=== PATIENT | male | born 1995 | race Caucasian/White ===

== ENCOUNTER → 2017-03-30 | Outpatient (CLI) | payer BC ==
--- NOTE | 2017-03-31 08:39 | XR ---
"EXAMINATION TYPE: XR wrist complete RT DATE OF EXAM: 03/30/2017 COMPARISON: 03/27/2016 HISTORY: Pain TECHNIQUE 3 views submitted. FINDINGS: There is a age-indeterminate fracture through the waist of the scaphoid. Remaining osseous structures intact. Joint spaces preserved. IMPRESSION: 1. Age-indeterminate fracture through the waist of the scaphoid. A Yellow message has been communicated to Zainab Anton via the [employer] | Critical Re sult system on 03/31/2017 8:36 AM, Message ID [id number]."
== END | disposition home or self-care (01) ==
LOC: RADXRYALE 15:49
PROVIDERS: ATTEND Physician Assistant Medical
DX: S62.001A Unspecified fracture of navicular [scaphoid] bone of right wrist, initial encounter for closed fracture (principal)

== ENCOUNTER → 2017-05-15 | Outpatient (CLI) | payer BC ==
--- NOTE | 2017-05-15 11:22 | MR ---
MR right wrist HISTORY: Pain and fracture, M 25.531 Multiplanar multisequence imaging through the right wrist correlated to plain film 03/30/2017 The scaphoid waist fracture shows minimal displacement. There is bone marrow edema involving the dist al metaphyseal radius, there is likely associated microtrabecular fractures present within the distal radius and carpal bones. Bone marrow edema is present within the triquetrum, distal pole of the scap hoid and lesser extent lunate bone as well as proximal capitate, trapezoid. There is a joint effusion present. Right neural fibrocartilage, scapholunate, lunotriquetral ligaments felt to be intact. Some eburnation present at the distal aspect of the lunate is noted as on plain film where there is scler osis present. IMPRESSION: Scaphoid fracture is minimally displaced. There is diffuse marrow edema, microtrabecular fractures are suspected.
== END | disposition home or self-care (01) ==
LOC: RADMRIMAIN 09:58
PROVIDERS: ATTEND Orthopaedic Surgery Hand Surgery
DX: S62.021A Displaced fracture of middle third of navicular [scaphoid] bone of right wrist, initial encounter for closed fracture (principal)

== ENCOUNTER 2022-09-23 23:34 | Emergency (ER) | payer BC ==
[2022-09-24 00:17] VITALS: RESP 20; TEMP 98.2
--- NOTE | 2022-09-24 01:26 | XR ---
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 No acute fracture seen. The distal radius and ulna appear intact. Metacarpals are intact. 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 No acute fra ctures seen.
--- NOTE | 2022-09-24 01:27 | XR ---
EXAMINATION TYPE: XR hand complete RT DATE OF EXAM: 09/24/2022 COMPARISON: NONE HISTORY: Fall. Pain TECHNIQUE: 3 views FINDINGS: 3 views IMPRESSION: Metacarpals are intact. Fingers are intact. There are no erosions. 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 IMPRESSION: No acute abnormality of the right hand.
[2022-09-24] MEDS ORDERED: traMADol 50 MG TAB PO STA (01:46)
--- NOTE | 2022-09-24 02:03 | ED ---
Upper Extremity HPI - General Chief Complaint: Extremity Injury, Upper Stated Complaint: rt arm injury Time Seen by Provider: 09/24/22 01:14 Source: patient, RN notes reviewed Mode of arrival: ambulatory Limitations: no limitations - History of Present Illness Initial Comments: This is a 27-year-old male who presents to the emergency department with pain and swelling to the right hand and wrist. States that he was walking upstairs when he tripped and fell, landing with his right wrist bent back. Denies any other injuries. He is having difficulty moving his wrist and hand due to the pain. He feels like when the injury occurred, he heard a popping sensation. He does have a prior injury to this area, and broke it approximately 3 years ago. Denies any fevers, chills, sore throat, cough, dyspnea, chest pain, palpitations, abdominal pain, nausea, vomiting, diarrhea, back pain, or headaches. MD Complaint: Injury to:: right, wrist, hand Associated Symptoms: heard/felt popping sensat - Related Data Home Medications Medication Instructions Recorded Confirmed Amoxicillin 500 mg PO Q12HR 06/03/16 06/03/16 HYDROcodone/APAP 5-325MG [[place] 1 tab PO Q4HR PRN 06/03/16 06/03/16 5-325] Previous Rx's Medication Instructions Recorded traMADol HCl [Ultram] 50 mg PO Q6HR PRN 3 Days #12 tab 09/24/22 Allergies Allergy/AdvReac Type Severity Reaction Status Date / Time codeine Allergy Rash/Hives Verified 09/24/22 00:17 Review of Systems ROS Statement: Those systems with pertinent positive or pertinent negative responses have been documented in the HPI. ROS Other: All systems not noted in ROS Statement are negative. Past Medical History Past Medical History: No Reported History History of Any Multi-Drug Resistant Organisms: None Reported Past Surgical History: Adenoidectomy, Appendectomy, Tonsillectomy Past Psychological History: No Psychological Hx Reported Past Alcohol Use History: Occasional Past Drug Use History: None Reported General Exam Limitations: no limitations General appearance: alert, in distress Head exam: Present: atraumatic, normocephalic, normal inspection Respiratory exam: Present: normal lung sounds bilaterally. Absent: respiratory distress, wheezes, rales, rhonchi, stridor Cardiovascular Exam: Present: regular rate, normal rhythm, normal heart sounds. Absent: systolic murmur, diastolic murmur, rubs, gallop, clicks Extremities exam: Present: other (Swelling and tenderness over the dorsal aspect of the right hand just inferior to the thumb and pointer finger. There is full range of motion of all 5 digits, however this does induce pain. 2+ radial pulses and capillary refill less than 1 second.) Neurological exam: Present: alert, oriented X3, CN II-XII intact Psychiatric exam: Present: normal affect, normal mood Skin exam: Present: warm, dry, intact, normal color. Absent: rash Course Vital Signs 09/24/22 09/24/22 00:14 03:07 Temperature 98.2 F 98.2 F Pulse Rate 93 90 Respiratory 20 20 Rate Blood Pressure 121/74 117/64 O2 Sat by Pulse 98 98 Oximetry Procedures - Orthopedic Splinting/Casting Injury #1 Side: right Upper Extremity Injury Location: wrist, hand Upper Extremity Immobilizer: volar splint Additional Comments: Performed by myself Medical Decision Making - Medical Decision Making This is a 27-year-old male who presents to the emergency department with a left wrist and hand injury. X-ray of the right wrist and hand obtained. On my interpretation I do not identify any acute fractures or dislocations. The radiologist does make note of a prior ununited fracture of the scaphoid bone. Advised the patient and there are no acute fractures we can identify at this time, however the prior injury was also likely exacerbated. He was put in a volar splint for stabilization and support. Given the severity of his symptoms and likely exacerbated old injury, I'm willing to provide a 3 day course of tramadol. Advised he take this very sparingly when his pain is the most severe and to otherwise alternate with ibuprofen and Tylenol. Also advised to avoid driving or operating machinery when taking this due to the sedating effects. Instructed him to apply ice for 10-15 minutes every 2-3 hours and to keep the hand elevated. He can use the splint as needed for support and stabilization. Return precautions reviewed in depth, the patient is instructed to return to the emergency department with any new, worsening, or concerning symptoms. Patient verbalized understanding. This case was discussed in detail with the attending ED physician. Presentation, findings, and treatment plan discussed in detail as well. - Radiology Data Radiology results: report reviewed, image reviewed Disposition Clinical Impression: Sprain of right hand Disposition: HOME SELF-CARE Instructions (If sedation given, give patient instructions): Splint Care (ED), Hand Sprain (ED), Wrist Sprain (ED) Additional Instructions: Return to the emergency department with any new, worsening, or concerning symptoms. Alternate with ibuprofen and Tylenol for pain relief and take the tramadol sparingly when your pain is the most severe. Apply ice for 10-15 minutes every 2-3 hours and keep the hand elevated. Use the splint and Blake wrap as needed for stabilization and support. You can also use an arm sling to keep your hand in a comfortable position. Follow up with your primary care provider in 1-2 days. Prescriptions: traMADol HCl [Ultram] 50 mg PO Q6HR PRN 3 Days #12 tab PRN Reason: Pain Is patient prescribed a controlled substance at d/c from ED?: Yes When asked, does pt state using other controlled substances?: No If prescribed controlled substance>3 days was MAPS reviewed?: Prescribed <3 Days Referrals: Chad Contreras DO [Primary Care Provider] - 1-2 days
[2022-09-24] MEDS ORDERED: traMADol 50 MG STARTER PACK 3 TAB BTL PO STA (02:34)
[2022-09-24] MEDS ORDERED: IBUPROFEN 600 MG STARTER PACK 4 TAB BTL PO STA (02:34)
[2022-09-24 03:08] VITALS: BP 117/64; PULSE 90
== END 2022-09-24 03:08 | disposition home or self-care (01) ==
LOC: EC 23:34
DX: S63.91XA Sprain of unspecified part of right wrist and hand, initial encounter (principal); Z88.5 Allergy status to narcotic agent; W01.0XXA Fall on same level from slipping, tripping and stumbling without subsequent striking against object, initial encounter; Y93.01 Activity, walking, marching and hiking
CPT/HCPCS: 29125; 99283